=== PATIENT | female | born 1950 | race Caucasian/White ===

== ENCOUNTER 2021-03-20 09:59 | Inpatient (IN) ==
[~2021-03-20 09:59] MED LIST: 0.9 % SODIUM CHLORIDE 250 ML IV SCH
[2021-03-20 10:48] LABS: Basophils # (Auto) 0.08 K/mcL (0.00-0.20); Basophils % (Auto) 1.2 % (0.0-2.0); Eosinophils # (Auto) 0.18 K/mcL (0.00-0.70); Eosinophils % (Auto) 2.7 % (0.0-7.0); Hematocrit 28.9 % (36.0-48.0); Hemoglobin 9.4 g/dL (12.0-15.0); Lymphocytes # (Auto) 0.87 K/mcL (1.50-4.80); Lymphocytes % (Auto) 13.2 % (15.0-49.0); Mean Cell Volume 100.7 fL (80.0-100.0); Mean Corpuscular HGB Conc 32.5 g/dL (31.0-36.0); Monocytes # (Auto) 0.73 K/mcL (0.10-0.90); Monocytes % (Auto) 11.1 % (1.0-12.0); Neutrophils % (Auto) 71.8 % (38.0-78.0); Platelet Count 279 K/mcL (140-440); RBC 2.87 M/mcL (4.00-5.20); Red Cell Distribution Width 14.9 % (11.5-14.5); WBC 6.6 K/mcL (4.5-11.0)
[2021-03-20 11:08] LABS: Partial Thromboplastin Time 34.5 sec (20.0-37.0)
[2021-03-20 11:09] LABS: INR 0.9 (0.9-1.1); Prothrombin Time 12.8 sec (11.9-14.5)
[2021-03-20 11:20] LABS: ALT/SGPT 8 U/L (<40); AST/SGOT 14 U/L (<32); Albumin 3.4 gm/dL (3.2-5.2); Albumin/Globulin Ratio 0.8 (1.0-2.3); Alkaline Phosphatase 94 U/L (39-117); Bilirubin,Total 0.3 mg/dL (0.1-1.0); Blood Urea Nitrogen 16 mg/dL (8-23); Calcium 9.2 mg/dL (8.6-10.4); Carbon Dioxide 24 mmol/L (22-30); Chloride 96 mmol/L (96-108); Globulin 4.2 gm/dL (2.2-3.7); Glomerular Filtration Rate 41; Glucose 145 mg/dL (70-105)
[2021-03-20] MEDS ORDERED: NON FORMULARY MEDICATION 1 DOSE MISCELL (Methadone 10 mg tablet) PO PRN (12:14)
[2021-03-20] MEDS ORDERED: HYDROmorphone 0.5 MG/0.5 ML SYRINGE IV PRN (12:19)
--- NOTE | 2021-03-20 12:52 | XRay Report ---
HISTORY: Preop for colon surgery FINDINGS: Lungs are hyperinflated. There is an ill-defined diffuse infiltrates throughout the right lung. It Extends from above the hilum down to the diaphragm. The pulmonary vessels, best seen on the upper lobes are engorged.. No pleural effusion is present. The heart size is normal but has enlarged since 07/16/15. There are multiple surgical clips in the left axilla. Moderate arthritis is present in both shoulders. There is a scoliotic curvature with associated arthritis in the thoracic and lumbar spine.. IMPRESSION: Diffuse infiltrate in the right lung which could be due to pneumonia or asymmetric pulmonary edema Enlarging heart with pulmonary vascular congestion Interpreted and Authenticated by: Yaniv Saavedra 03/20/21
[2021-03-20] MEDS: METHADONE 5 MG TABLET PO PRN ×2 (13:25→23:07)
[2021-03-20] MEDS: 0.9 % SODIUM CHLORIDE 1,000 ML IV SCH ×2 (13:25→20:06)
[2021-03-20] MEDS ORDERED: MAGNESIUM CITRATE 300 ML ORAL.SOL ONE (13:46)
[2021-03-20] MEDS: METOCLOPRAMIDE 10 MG/2 ML VIAL IV SCH ×2 (14:18→19:07)
[2021-03-20] MEDS: MAGNESIUM CITRATE 300 ML ORAL.SOL PO SCH ×2 (14:21→18:06)
[2021-03-20] MEDS: PANTOPRAZOLE 40 MG VIAL IV SCH (16:55)
--- NOTE | 2021-03-20 17:33 | General Surgery Progress Note ---
SUBJECTIVE Subjective Patient information: Note initiated : 03/20/21 at 5:29 pm Service Date, if different from initiated Date: [] Patient: Angely Painter 70 y/o F admitted on 03/20/21 for Posterior Proctopexy and End Colostomy. Chief Complaint: [] Interval history: The patient was interviewed last evening and has decided that she does not want to have the colostomy. She asked the proctopexy be done primarily proceed with colostomy. She is again informed since she has no sphincter tone but she will have the equipment the perineal stoma without control with constant fecal incontinence. She states that she wishes to proceed with posterior proctopexy alone and not have the colostomy performed. She is quite sure this is what she wishes to have in spite of the high probability of fecal incontinence. She is therefore going to have the equipment of the Ripstein procedure and I will follow her closely after she recovers to determine if she wishes to diverting colostomy performed. Constitutional Vitals: Vital Signs Temp Pulse Resp BP Pulse Ox 97.8 F 20 L 20 99/56 91 03/20/21 16:00 03/20/21 16:00 03/20/21 16:00 03/20/21 16:00 03/20/21 16:00 Period Temp Pulse Resp BP Sys/Kasper Pulse Ox Last 24 Hr 97.8 F-98.7 F 20-87 18-20 99-125/56-68 91-95 Intake and Output 03/20/21 03/20/21 03/20/21 05:59 13:59 21:59 Output Total 1 Balance -1 Weight 120 lb Patient Weight 03/21/21 05:59 Weight 120 lb Intake & Output: Intake & Output 03/20/21 03/20/21 03/20/21 05:59 13:59 21:59 Output Total 1 Balance -1 Weight 120 lb Output: # of times incontinent of urine 1 Other: # Voids 1 A/P Time Spent With Patient Time: Total time spent is greater than 50% in coordination of care (as documented) at patient's floor/unit and/or counseling patient:
[2021-03-20] MEDS ORDERED: ONDANSETRON 4 MG/2 ML VIAL IV PRN (17:39)
[2021-03-20 18:44] LABS: Prealbumin 9.9 mg/dL (20.0-40.0)
[2021-03-21] MEDS: METOCLOPRAMIDE 10 MG/2 ML VIAL IV SCH ×5 (00:22→23:28)
[2021-03-21 01:40] LABS: ALT/SGPT 8 U/L (<40); AST/SGOT 14 U/L (<32); Albumin 3.2 gm/dL (3.2-5.2); Albumin/Globulin Ratio 0.9 (1.0-2.3); Alkaline Phosphatase 92 U/L (39-117); Bilirubin,Direct < 0.2 mg/dL (0-0.3); Bilirubin,Total 0.2 mg/dL (0.1-1.0); Blood Urea Nitrogen 17 mg/dL (8-23); Carbon Dioxide 21 mmol/L (22-30); Chloride 97 mmol/L (96-108); Globulin 3.4 gm/dL (2.2-3.7); Glomerular Filtration Rate 41; Glucose 82 mg/dL (70-105); Lactate Dehydrogenase 180 U/L (135-225); Phosphorous 4.9 mg/dL (2.5-4.5); Triglycerides 62 mg/dL (<150); Uric Acid 6.8 mg/dL (2.5-8.0)
[2021-03-21] MEDS: 0.9 % SODIUM CHLORIDE 1,000 ML IV SCH ×2 (02:30→10:19)
[2021-03-21 04:40] LABS: Appearance,Urine HAZY (Clear); Bilirubin,Urine Negative (Negative); Color,Urine YELLOW; Culture Indicated,Urine No; Glucose,Urine (UA) Negative (Negative); Ketones,Urine Negative (Negative); Leukocyte Esterase,Urine Negative /ug (Negative); Nitrate,Urine Negative (Negative); Protein,Urine Negative (Negative); Specific Gravity,Urine 1.012 (1.000-1.035); Urine Blood Negative (Negative); Urobilinogen,Urine Negative
[2021-03-21] MEDS ORDERED: metroNIDAZOLE 500 MG/100 ML BAG IV SCH (06:00)
[2021-03-21] MEDS ORDERED: LEVOFLOXACIN 750 MG/150 ML BAG IV SCH (06:00)
[2021-03-21 07:13] LABS: Basophils # (Auto) 0.09 K/mcL (0.00-0.20); Eosinophils # (Auto) 0.07 K/mcL (0.00-0.70); Eosinophils % (Auto) 0.8 % (0.0-7.0); Hematocrit 29.8 % (36.0-48.0); Hemoglobin 9.5 g/dL (12.0-15.0); Lymphocytes # (Auto) 0.84 K/mcL (1.50-4.80); Mean Cell Volume 103.5 fL (80.0-100.0); Mean Corpuscular HGB Conc 31.9 g/dL (31.0-36.0); Mean Platelet Volume 9.1 fL (7.4-10.4); Monocytes # (Auto) 1.04 K/mcL (0.10-0.90); Monocytes % (Auto) 11.1 % (1.0-12.0); Neutrophils % (Auto) 78.1 % (38.0-78.0); Platelet Count 310 K/mcL (140-440); RBC 2.88 M/mcL (4.00-5.20); Red Cell Distribution Width 15.1 % (11.5-14.5); WBC 9.3 K/mcL (4.5-11.0)
[2021-03-21] MEDS ORDERED: SCOPOLAMINE 1 PATCH PATCH TOPICAL PRN ×2 (07:30→09:34)
[2021-03-21] MEDS ORDERED: IPRATROPIUM/ALBUTEROL 3 ML AMPUL.NEB NEB PRN (07:30)
[2021-03-21 07:32] LABS: ALT/SGPT 13 U/L (<40); AST/SGOT 22 U/L (<32); Albumin/Globulin Ratio 0.7 (1.0-2.3); Alkaline Phosphatase 141 U/L (39-117); Bilirubin,Direct < 0.2 mg/dL (0-0.3); Bilirubin,Total 0.3 mg/dL (0.1-1.0); Blood Urea Nitrogen 20 mg/dL (8-23); Calcium 9.1 mg/dL (8.6-10.4); Carbon Dioxide 24 mmol/L (22-30); Chloride 102 mmol/L (96-108); Globulin 4.4 gm/dL (2.2-3.7); Glomerular Filtration Rate 41; Glucose 86 mg/dL (70-105); Lactate Dehydrogenase 206 U/L (135-225); Phosphorous 4.5 mg/dL (2.5-4.5); Triglycerides 71 mg/dL (<150); Uric Acid 7.2 mg/dL (2.5-8.0)
[2021-03-21] MEDS: PANTOPRAZOLE 40 MG VIAL IV SCH ×2 (08:59→17:27)
[2021-03-21] MEDS ORDERED: amLODIPine 10 MG TABLET PO SCH (09:00)
[2021-03-21] MEDS ORDERED: SERTRALINE 100 MG TABLET PO SCH (09:00)
[2021-03-21] MEDS ORDERED: cloNIDine HCL 0.1 MG TABLET PO SCH (09:00)
[2021-03-21] MEDS ORDERED: hydrALAZINE 20 MG/ML VIAL IV PRN ×2 (09:08→09:34)
[2021-03-21 09:09] LABS: Blood Urea Nitrogen 20 mg/dL (8-23); Calcium 8.9 mg/dL (8.6-10.4); Carbon Dioxide 24 mmol/L (22-30); Chloride 102 mmol/L (96-108); Glomerular Filtration Rate 41; Glucose 93 mg/dL (70-105)
--- NOTE | 2021-03-21 09:28 | Internal Medicine Consult Note ---
HPI Data of Consult Consult date: 03/21/21 Primary Care Provider: Valerie Milton Consult Narrative cc:: CC: Richy Austin MD. Reason for consult: hypoxia. HPI: Patient is a 70 years old woman claims to have no prior cardiac or pulmonary history such as CHF, CAD, asthma, COPD, documented history of chronic kidney disease stage III, originally admitted by Dr. Austin for planted proctopexy for rectal prolapse. During preop preparations, patient was found to be hypoxic with oxygen saturations as low as to the 50s percent on room air. At that point patient was alert and oriented x3, not lethargic, and claims to be totally asymptomatic including denying shortness of breath, cough, wheezing, or chest pain. Patient was placed on supplemental oxygen via oxygen mask, and her surgery was canceled. Medical consultations were requested for management of hypoxia. Patient is currently is also asymptomatic, alert and oriented x3, denied shortness of breath, cough, sputum productions, wheezings. Denies fever, chills, or diaphoresis. Patient denies dyspnea of the exertions. Patient denies leg swelling or unintentional weight gain. Patient's denies orthopnea and sleeps on one pillow at night. Patient had a history of cigarette smoking half a pack a day for 20 years but she quit 5 years ago. Constitutional Constitutional: Absent chills, excessive sweating, fatigue, fever(s) and weakness EENT Eyes: Absent blurry vision, change in vision, loss of vision and other visual disturbances Ears: Absent decreased hearing and tinnitus Nose, mouth and throat: Absent abnormal hearing, dry mouth, headache(s), nasal congestion and sore throat Cardiovascular Cardiovascular: Absent chest pain, chest pain at rest, edema, irregular heart rhythm and palpatations Respiratory Respiratory: Absent cough, dyspnea and wheezing Gastrointestinal Gastrointestinal: Absent abdominal pain, constipation, diarrhea, nausea and vomiting Musculoskeletal Musculoskeletal: Absent back pain, deformity, limited range of motion, muscle cramps, muscle weakness and numbness Integumentary Integumentary: Absent lesions, rash and wounds Neurological Neurological: Absent focal weakness, headache(s) and numbness Psychiatric Psychiatric: Absent anxiety, depression and hallucinations PFSH PFSH All Active Problems (Updated 03/21/21 @ 09:27 by Zeb Wakefield MD) CHF (congestive heart failure), NYHA class II (Acute) Atrial fibrillation (Acute) Hypoxia (Acute) Anal sphincter incompetence (Acute) Rectal prolapse (Acute) 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) Degenerative disc disease, lumbar (Chronic) Solitary kidney, acquired (Chronic) Benign hypertension with CKD (chronic kidney disease) stage III (Chronic) CKD (chronic kidney disease) stage 3, GFR 30-59 ml/min (Chronic) Right hip pain (Acute) Nausea with vomiting (Acute) Metastatic neoplasm (Chronic) Hypertension (Chronic) Chronic Kidney Disease (Chronic) Serum creatinine raised (Chronic) Chronic pain (Chronic) Renal cell carcinoma (Chronic) History of biopsy (Chronic 05/09/15) Chronic pancreatitis (Chronic) Fatigue (Chronic) Venous insufficiency (Chronic) Sleep apnea (Chronic) Hypertension, essential (Chronic) Depressive disorder (Chronic 06/07/14) Breast cancer (Chronic) Anemia (Chronic) Medical History (Updated 03/21/21 @ 09:27 by Zeb Wakefield MD) Anemia (09/03/2014) Dr. Mendez; Anemia, symptomatic with associated abdominal pain Benign hypertension with CKD (chronic kidney disease) stage III Breast cancer Sep 2013 Newly diagnosed. 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 Villegas suggested radiation therapy but patient declined Chronic Kidney Disease Chronic pain Chronic pain Chronic pancreatitis CKD (chronic kidney disease) stage 3, GFR 30-59 ml/min Degenerative disc disease, lumbar multilevel Depressive disorder (06/07/14) 06/07/2014 - PHQ-9 score of 21; improved to score of 3 on 100mg of sertraline Diarrhea (09/03/2013) Dr. Mendez Electrolyte and fluid disorder (09/03/2013) Dr. 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 Walters Pancreatitis 05/2014 (09/03/2013) Dr. Mendez; History of biliary pancreatitis, status post cholecystectomy 02/2014, per Dr. Jacome related to alcohol (07/04/2014) Dr. Eleno Curran; Pancreatitis Pyelonephritis 11/13/2014 - [facility] Robertson Renal cell carcinoma 05/24/2015 - Right kidney biopsy Right hip pain Serum creatinine raised unilateral right nephrectomy 07/2015 for RCC Sleep apnea Sep [address] Escamilla sleep study; CPAP machine Solitary kidney, acquired Urinary tract infection 11/10/2014 - LINDA Dickey-[facility] Use of opiates for therapeutic purposes UTI (urinary tract infection) Venous insufficiency 2010 lower extremities; intermittent swelling; wears support hose prn Surgical History H/O rectal sphincterotomy (10/12/14) Dr. Florencio Ryan - Pancreatic sphincterotomy History of biopsy (05/09/15) Dr. Ivy - Right Mass Renal Biopsy - See path report History of cholecystectomy 02/[address] Jacome; [facility] History of colonoscopy (07/09/14) Dr. Honorio Martinez; Colonic polyps, Uncomplicated internal hemorrhoids History of ERCP (11/16/14) [facility], Negative for H.Pylori History of left breast biopsy (09/07/13) per Dr. Jacome History of surgical removal of skin lesion Apr [address] 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 [employer] sexually active: Yes other: 2 children/3 gc well-balanced diet: daily or most days daily servings fruits/ve-4 eating out: rarely or never during the past year weight has: remained stable physical activity: none frequency: 1-2 times per week duration: 15-30 minutes/day alcohol intake frequency: former alcohol drinker substance use type: does not use nidhi/hindu: None seatbelt use: always working smoke detector in home: Yes MEDS/ALLERGIES Home Medications and Allergies Home Medications Medication Instructions Recorded Confirmed Type letrozole 2.5 mg tablet 2.5 mg PO QDAY tab 04/22/16 03/20/21 History compression socks, medium #2 each 06/18/16 03/20/21 Rx amlodipine 10 mg tablet 10 mg PO QDAY #90 tab 06/17/17 03/20/21 Rx promethazine 25 mg tablet 12.5 mg PO Q6H PRN #120 tab 10/14/17 03/20/21 Rx methadone 10 mg tablet 10 mg PO Q6H PRN #120 tab 02/03/18 03/20/21 Rx sertraline 100 mg tablet 100 mg PO QDAY #30 tab 02/03/18 03/20/21 Rx fenofibrate 160 mg tablet 160 mg PO QDAY tab 01/16/19 03/20/21 History clonidine HCl 0.1 mg PO QDAY 03/19/21 03/20/21 History Allergies Allergy/AdvReac Type Severity Reaction Status Date / Time cefepime Allergy Mild Rash Verified 03/19/21 10:22 EXAM Constitutional Vitals: Temp Pulse Resp BP Pulse Ox 37.2 C 72 18 144/59 90 03/21/21 06:58 03/21/21 06:58 03/21/21 06:58 03/21/21 06:58 03/21/21 06:58 General appearance: cooperative and no acute distress Head Head exam: Present atraumatic and normocephalic Eye Eye exam: Present EOMI and PERRL ENT ENT exam: Present mucous membranes moist, normal exam and normal external ear exam Additional comments: oxygen mask in place Neck Neck exam: Present normal inspection; Absent lymphadenopathy, tenderness and thyromegaly Respiratory Respiratory exam: Absent accessory muscle use, respiratory distress and wheezes Additional comments: Respiratory crackles in bilateral lung bases Cardiovascular Cardiovascular exam: Present irregular rhythm; Absent normal rate and rhythm and JVD GI/Abdominal GI/Abdominal exam: Present normal bowel sounds and soft; Absent organomegaly and tenderness Additional comments: Rectal prolapse in place Extremities Exam Extremities exam: Present full ROM, normal capillary refill and normal inspection; Absent tenderness Neurological Exam Neurological exam: Present alert, CN II-XII intact and oriented X3; Absent motor sensory deficit Psychiatric Psychiatric exam: Present normal affect and normal mood; Absent anxious and depressed Skin Skin exam: Present dry and intact DATA Data Completed and Pending Labs: Labs from last 24 hours 03/21/21 03/21/21 03/21/21 08:47 07:50 05:22 WBC RBC Hgb Hct MCV MCH MCHC RDW Plt Count MPV Neut % (Auto) Lymph % (Auto) Petroleum % (Auto) Eos % (Auto) Baso % (Auto) Lymph # (Auto) Petroleum # (Auto) Eos # (Auto) Baso # (Auto) Absolute Neutrophils PT INR APTT Sodium 136 136 Potassium 5.9 H* 5.7 H Chloride 102 102 Carbon Dioxide 24 24 Anion Gap 10.0 10.0 BUN 20 20 Creatinine 1.3 H 1.3 H GFR Calculation 41 41 Glucose 93 86 Uric Acid 7.2 Calcium 8.9 9.1 Phosphorus 4.5 Magnesium 3.1 H Total Bilirubin 0.3 Direct Bilirubin < 0.2 GGT 54 H AST 22 ALT 13 Alkaline Phosphatase 141 H Lactate Dehydrogenase 206 NT-Pro-B Natriuret Pep Pending Total Protein 7.4 Albumin 3.0 L Globulin 4.4 H Albumin/Globulin Ratio 0.7 L Prealbumin Triglycerides 71 Urine Color Urine Appearance Urine pH Ur Specific [place] Urine Protein Urine Glucose (UA) Urine Ketones Urine Occult Blood Urine Nitrate Urine Bilirubin Urine Urobilinogen Ur Leukocyte Esterase Ur Culture Indicated? 03/21/21 03/21/21 03/20/21 05:22 03:50 12:34 WBC 9.3 Pending RBC 2.88 L Pending Hgb 9.5 L Pending Hct 29.8 L Pending MCV 103.5 H Pending MCH 33.0 Pending MCHC 31.9 Pending RDW 15.1 H Pending Plt Count 310 Pending MPV 9.1 Pending Neut % (Auto) 78.1 H Pending Lymph % (Auto) 9.0 L Petroleum % (Auto) 11.1 Eos % (Auto) 0.8 Baso % (Auto) 1.0 Lymph # (Auto) 0.84 L Petroleum # (Auto) 1.04 H Eos # (Auto) 0.07 Baso # (Auto) 0.09 Absolute Neutrophils 7.29 PT INR APTT Sodium Potassium Chloride Carbon Dioxide Anion Gap BUN Creatinine GFR Calculation Glucose Uric Acid Calcium Phosphorus Magnesium Total Bilirubin Direct Bilirubin GGT AST ALT Alkaline Phosphatase Lactate Dehydrogenase NT-Pro-B Natriuret Pep Total Protein Albumin Globulin Albumin/Globulin Ratio Prealbumin Triglycerides Urine Color Yellow Urine Appearance Hazy A Urine pH 5.0 Ur Specific [place] 1.012 Urine Protein Negative Urine Glucose (UA) Negative Urine Ketones Negative Urine Occult Blood Negative Urine Nitrate Negative Urine Bilirubin Negative Urine Urobilinogen Negative Ur Leukocyte Esterase Negative Ur Culture Indicated? No 03/20/21 03/20/21 03/20/21 12:34 10:29 05:00 WBC RBC Hgb Hct MCV MCH MCHC RDW Plt Count MPV Neut % (Auto) Lymph % (Auto) Petroleum % (Auto) Eos % (Auto) Baso % (Auto) Lymph # (Auto) Petroleum # (Auto) Eos # (Auto) Baso # (Auto) Absolute Neutrophils PT INR APTT Sodium 134 132 L Potassium 4.8 3.9 Chloride 97 96 Carbon Dioxide 21 L 24 Anion Gap 16.0 12.0 BUN 17 16 Creatinine 1.3 H 1.3 H GFR Calculation 41 41 Glucose 82 145 H Uric Acid 6.8 Calcium 9.0 9.2 Phosphorus 4.9 H Magnesium 1.8 Total Bilirubin 0.2 0.3 Direct Bilirubin < 0.2 GGT 22 AST 14 14 ALT 8 8 Alkaline Phosphatase 92 94 Lactate Dehydrogenase 180 NT-Pro-B Natriuret Pep Total Protein 6.6 7.6 Albumin 3.2 3.4 Globulin 3.4 4.2 H Albumin/Globulin Ratio 0.9 L 0.8 L Prealbumin 9.9 L Triglycerides 62 Urine Color Pending Urine Appearance Pending Urine pH Pending Ur Specific [place] Pending Urine Protein Pending Urine Glucose (UA) Pending Urine Ketones Pending Urine Occult Blood Pending Urine Nitrate Pending Urine Bilirubin Pending Urine Urobilinogen Pending Ur Leukocyte Esterase Pending Ur Culture Indicated? 03/20/21 03/20/21 05:00 05:00 WBC 6.6 RBC 2.87 L Hgb 9.4 L Hct 28.9 L MCV 100.7 H MCH 32.8 MCHC 32.5 RDW 14.9 H Plt Count 279 MPV 9.0 Neut % (Auto) 71.8 Lymph % (Auto) 13.2 L Petroleum % (Auto) 11.1 Eos % (Auto) 2.7 Baso % (Auto) 1.2 Lymph # (Auto) 0.87 L Petroleum # (Auto) 0.73 Eos # (Auto) 0.18 Baso # (Auto) 0.08 Absolute Neutrophils 4.71 PT 12.8 INR 0.9 APTT 34.5 Sodium Potassium Chloride Carbon Dioxide Anion Gap BUN Creatinine GFR Calculation Glucose Uric Acid Calcium Phosphorus Magnesium Total Bilirubin Direct Bilirubin GGT AST ALT Alkaline Phosphatase Lactate Dehydrogenase NT-Pro-B Natriuret Pep Total Protein Albumin Globulin Albumin/Globulin Ratio Prealbumin Triglycerides Urine Color Urine Appearance Urine pH Ur Specific [place] Urine Protein Urine Glucose (UA) Urine Ketones Urine Occult Blood Urine Nitrate Urine Bilirubin Urine Urobilinogen Ur Leukocyte Esterase Ur Culture Indicated? A/P Assessment and plan (1) Atrial fibrillation: Status: Acute (2) Hypoxia: Status: Acute (3) CHF (congestive heart failure), NYHA class II: Status: Acute (4) Rectal prolapse: Status: Acute (5) CKD (chronic kidney disease) stage 3, GFR 30-59 ml/min: Status: Chronic (6) Hypertension: Status: Chronic Qualifiers: Hypertension type: essential hypertension Qualified Code(s): I10 - Essential (primary) hypertension (7) Depressive disorder: Status: Chronic Comment: 06/07/2014 - PHQ-9 score of 21; improved to score of 3 on 100mg of sertraline (8) Anemia: Status: Chronic Comment: (09/03/2014) Dr. Mendez; Anemia, symptomatic with associated abdominal pain Narrative A/P Narrative: Assessment and Plans: 1. Asymptomatic hypoxia, presumed to be secondary to CHF: Inpatient med surg 2D echocardiogram Daily weigh Strict intake and output 2L/day fluid restriction Lasix 40mg IV BID, switch to PO maybe tomorrow Lisinopril 5mg PO daily Add beta nelson at time of discharge Oxygen therapy titrate to achieve oxygen saturation >=92% 2. Atrial fibrillation: [id number] score of 4 (if CHF confirmed by echocardiogram) or 3 Xarelto Currently rate-controlled, add beta nelson at time of discharge 3. Rectal prolapse: Dr. Austin does not plan to do any surgery at this point. Continue medical management 4. CKD stage 3: CMP daily to trend kidney functions Saline lock with Lasix Avoid nephrotoxic agents 5. Macrocytic anemia: cbc to trend H/H; transfuse pRBC if hemoglobin <7.0, active bleeding, or symptomatic 6. Essential HTN: Currently normotensive Lisinopril Lasix IV Add beta nelson at time of discharge 7. Depressive disorder: Sertraline Time Spent With Patient Time: Total time spent is greater than 50% in coordination of care (as documented) at patient's floor/unit and/or counseling patient: Total time spent with greater than 50% in coordination of care (as documented) at patient's floor/unit and/or counseling patient:: 25 - 35 minutes
[2021-03-21] MEDS ORDERED: HYDROmorphone 0.5 MG/0.5 ML SYRINGE IV PRN (09:34)
[2021-03-21] MEDS ORDERED: ONDANSETRON 4 MG/2 ML VIAL IV PRN (09:34)
--- NOTE | 2021-03-21 09:35 | General Surgery Progress Note ---
SUBJECTIVE Subjective Patient information: Note initiated : 03/21/21 at 9:27 am Service Date, if different from initiated Date: [] Patient: Angely Painter 70 y/o F admitted on 03/20/21 for Posterior Proctopexy and End Colostomy. Chief Complaint: [] Principal diagnosis: Rectal prolapse; hypoxemia; pulmonary congestion Interval history: The patient was noted to have severe hypoxemia when she arrived in the holding area prior to surgery. The saturation monitors suggested 50 to 60% oxygen saturation on room air. This increased to 92% with oxygen supplementation. Blood gases were drawn but the oxygen level was said to be less than 30 which is out of line with her clinical state this was probably a venous sample. Chest x-ray shows pulmonary congestion compatible with cardiac failure his pain is controlled. He also has a questionable infiltrate at the right base. Constitutional Vitals: Vital Signs Temp Pulse Resp BP Pulse Ox 98.9 F 72 18 144/59 90 03/21/21 06:58 03/21/21 06:58 03/21/21 06:58 03/21/21 06:58 03/21/21 06:58 Period Temp Pulse Resp BP Sys/Kasper Pulse Ox Last 24 Hr 97.2 F-98.9 F 20-87 16-20 99-144/56-73 90-95 Intake and Output 03/20/21 03/21/21 03/21/21 21:59 05:59 13:59 Intake Total 1300 1000 100 Output Total 1 750 Balance 1299 250 100 Weight 125 lb 9 oz Intake & Output: Intake & Output 03/20/21 03/21/21 03/21/21 21:59 05:59 13:59 Intake Total 1300 1000 100 Output Total 1 750 Balance 1299 250 100 Weight 125 lb 9 oz Intake: IV 1000 1000 100 Sodium Chloride 0.9% 1,000 ml @ 1000 1000 150 mls/hr IV .[id number] [facility] Rx#: [id number] Oral 300 Output: # of times incontinent of urine 1 Stool 750 Other: Stool Size Small Small Moderate Stool Color Brown Brown Brown Stool Consistency Formed Liquid Soft # Voids 1 # Bowel Movements 1 # of times incontinent of 1 Bowels Head Head exam: Present atraumatic, normal inspection and normocephalic Eye Eye exam: Present EOMI Pupils: Present normal accommodation and PERRL ENT ENT exam: Present mucous membranes moist, normal exam and normal oropharynx Neck Neck exam: Present full ROM; Absent lymphadenopathy and tenderness Respiratory Respiratory exam: Present normal respiratory exam and CTAB; Absent rales, respiratory distress, rhonchi, stridor and wheezes Cardiovascular Cardiovascular exam: Present bradycardia, irregular rhythm, +S1 and +S2; Absent JVD Additional comments: Heart rate is irregularly irregular with base rate of 60. GI/Abdominal GI/Abdominal exam: Present normal bowel sounds, soft and distended; Absent mass and organomegaly Extremities Exam Extremities exam: Present full ROM, normal capillary refill, normal inspection and neurovascular intact; Absent pedal edema and tenderness Back Exam Back exam: Present full ROM Neurological Exam Neurological exam: Present alert, oriented X3 and reflexes normal Psychiatric Psychiatric exam: Present normal affect and normal mood; Absent anxious and depressed Skin Skin exam: Present pallor; Absent cyanosis, erythema and rash A/P Narrative A/P Narrative: Patient has received Lasix 40 mg IV Echocardiogram was ordered proBNP follow-up chest x-ray is ordered Consultation with hospitalist as soon as possible Time Spent With Patient Time: Total time spent is greater than 50% in coordination of care (as documented) at patient's floor/unit and/or counseling patient:
[2021-03-21] MEDS ORDERED: CALCIUM GLUCONATE 4.65 MEQ/10 ML VIAL IV ONE (10:14)
[2021-03-21] MEDS ORDERED: SODIUM POLYSTYRENE SULFONATE 15 GM/60 ML SUSPENSION PO ONE (10:14)
[2021-03-21] MEDS ORDERED: ALBUTEROL SULFATE 200 PUFF INHALER INH ONE (10:14)
[2021-03-21] MEDS ORDERED: DEXTROSE 50% 50 ML SYRINGE IV ONE (10:14)
[2021-03-21] MEDS ORDERED: INSULIN REGULAR, HUMAN 1 UNIT/0.01 ML UNIT IV ONE (10:14)
--- NOTE | 2021-03-21 10:26 | General Surgery Progress Note ---
Surgical - Auxillary Note - Subjective Patient Information: Note initiated : 03/21/21 at 9:17 am Service Date, if different from initiated Date: [] Patient: Angely Painter 70 y/o F admitted on 03/20/21 for Posterior Proctopexy and End Colostomy. Chief Complaint: [Hypoxemia preop-surgery cancelled pt arrived decrease LOC, dusky without notable resp distress. very slow and poor response to mask O2. RA ABGs taken to confirm, critical low PO2. Overnight narcotics administered, perhaps contributing factor. more likely underlying severe pulmonary disease with concomitant cardiac issues. pt will need comprehensive evaluation to assess periop risk, would recommend higher level of care. labs, ekg and cxr and history all reviewed, abgs ordered and recheck bmp. Dr Austin at bedside and aware, agrees with cancel and further eval and possible transfer. stated overnight hypoxia issues occurred but not reported to Dr Austin... DIETER]
[2021-03-21] MEDS ORDERED: DEXTROSE 50% 50 ML VIAL IV ONE (10:30)
[2021-03-21] MEDS: FUROSEMIDE 40 MG/4 ML VIAL IV SCH ×2 (10:35→21:23)
--- NOTE | 2021-03-21 12:27 | EKG ---
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 Measurements Intervals [place] Rate: 56 P: GA: QRS: -6 QRSD: 84 T: -7 QT: 432 QTc: 417 Interpretive Statements ATRIAL FIBRILLATION NONSPECIFIC T ABNORMALITIES, INFERIOR LEADS NO PRIOR TRACING FOR COMPARISON ABNORMAL ECG Electronically Signed On 03-21-2021 12:27:07 PDT by Lamberto Orr M.D. /store/[email or web address]/[id number]
--- NOTE | 2021-03-21 12:56 | EKG ---
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 Measurements Intervals [place] Rate: 50 P: [place]: QRS: 6 QRSD: 138 T: -6 QT: 428 QTc: 391 Interpretive Statements ACCELERATED JUNCTIONAL ESCAPE RHYTHM NONSPECIFIC INTRAVENTRICULAR CONDUCTION DELAY BORDERLINE R WAVE PROGRESSION, ANTERIOR LEADS Since previous ECG of 03-20-2021, INCREASED QRSd ABNORMAL ECG Electronically Signed On 03-21-2021 12:56:13 PDT by Lamberto Orr M.D. /[facility]//[id number]
[2021-03-21] MEDS ORDERED: MAGNESIUM CITRATE 300 ML ORAL.SOL PO SCH (13:00)
[2021-03-21] MEDS: METHADONE 5 MG TABLET PO PRN ×2 (13:42→19:46)
[2021-03-21 17:14] LABS: Blood Urea Nitrogen 22 mg/dL (8-23); Calcium 9.3 mg/dL (8.6-10.4); Carbon Dioxide 26 mmol/L (22-30); Chloride 99 mmol/L (96-108); Glomerular Filtration Rate 34; Glucose 146 mg/dL (70-105)
[2021-03-21] MEDS: RIVAROXABAN 20 MG TABLET PO SCH (17:27)
[2021-03-22] MEDS: METOCLOPRAMIDE 10 MG/2 ML VIAL IV SCH ×4 (05:40→23:43)
[2021-03-22 06:57] LABS: Basophils # (Auto) 0.06 K/mcL (0.00-0.20); Basophils % (Auto) 0.8 % (0.0-2.0); Eosinophils # (Auto) 0.16 K/mcL (0.00-0.70); Eosinophils % (Auto) 2.1 % (0.0-7.0); Hematocrit 26.5 % (36.0-48.0); Hemoglobin 8.8 g/dL (12.0-15.0); Lymphocytes # (Auto) 0.63 K/mcL (1.50-4.80); Lymphocytes % (Auto) 8.1 % (15.0-49.0); Mean Cell Volume 98.5 fL (80.0-100.0); Mean Corpuscular HGB Conc 33.2 g/dL (31.0-36.0); Mean Platelet Volume 9.3 fL (7.4-10.4); Monocytes # (Auto) 0.96 K/mcL (0.10-0.90); Monocytes % (Auto) 12.4 % (1.0-12.0); Neutrophils % (Auto) 76.6 % (38.0-78.0); Platelet Count 290 K/mcL (140-440); RBC 2.69 M/mcL (4.00-5.20); Red Cell Distribution Width 14.6 % (11.5-14.5); WBC 7.8 K/mcL (4.5-11.0)
[2021-03-22] MEDS: PANTOPRAZOLE 40 MG VIAL IV SCH ×2 (07:22→16:05)
[2021-03-22 07:30] LABS: ALT/SGPT 11 U/L (<40); AST/SGOT 16 U/L (<32); Albumin 3.2 gm/dL (3.2-5.2); Albumin/Globulin Ratio 0.8 (1.0-2.3); Alkaline Phosphatase 122 U/L (39-117); Bilirubin,Direct < 0.2 mg/dL (0-0.3); Bilirubin,Total 0.4 mg/dL (0.1-1.0); Blood Urea Nitrogen 20 mg/dL (8-23); Calcium 9.4 mg/dL (8.6-10.4); Carbon Dioxide 33 mmol/L (22-30); Chloride 92 mmol/L (96-108); Globulin 3.8 gm/dL (2.2-3.7); Glomerular Filtration Rate 37; Glucose 83 mg/dL (70-105); Lactate Dehydrogenase 154 U/L (135-225); Phosphorous 3.5 mg/dL (2.5-4.5); Triglycerides 47 mg/dL (<150); Uric Acid 8.3 mg/dL (2.5-8.0)
[2021-03-22] MEDS: cloNIDine HCL 0.1 MG TABLET PO SCH (08:49)
[2021-03-22] MEDS: FUROSEMIDE 40 MG/4 ML VIAL IV SCH (08:49)
[2021-03-22] MEDS: SERTRALINE 100 MG TABLET PO SCH (08:50)
[2021-03-22] MEDS: amLODIPine 10 MG TABLET PO SCH (08:50)
[2021-03-22] MEDS ORDERED: LISINOPRIL 5 MG TABLET PO SCH (09:00)
--- NOTE | 2021-03-22 10:25 | XRay Report ---
HISTORY: Follow-up pulmonary congestion FINDINGS: Severe diffuse alveolar infiltrates are present throughout both lungs. There are several curly B lines. These have become worse since the prior exam done on 03/20/21. There may be a small subpulmonic pleural effusion on the right. Heart is mildly enlarged and has increased in size. No mass is identified. There is no apparent adenopathy. IMPRESSION: Worsening pulmonary edema. Superimposed pneumonia cannot be excluded. Interpreted and Authenticated by: Yaniv Saavedra 03/22/21
--- NOTE | 2021-03-22 10:57 | General Surgery Progress Note ---
SUBJECTIVE Subjective Patient information: Note initiated : 03/22/21 at 10:46 am Service Date, if different from initiated Date: [] Patient: Angely Painter 70 y/o F admitted on 03/20/21 for Posterior Proctopexy and End Colostomy. Chief Complaint: [] Principal diagnosis: Rectal prolapse; hypoxemia; pulmonary congestion Interval history: Patient states that she feels well and desires to go home. She denies any shortness of breath. She has been on oxygen at 3 L/min with sats above 90% consistently. She denies chest pain. Her proBNP yesterday was 6515. Chest x-ray this morning is clinically worse however her physical exam is actually better and she does not have any wheezes rales or rhonchi. She does hyperventilate bilaterally. Constitutional Vitals: Vital Signs Temp Pulse Resp BP Pulse Ox 97.7 F 69 14 160/70 95 03/22/21 08:00 03/22/21 08:00 03/22/21 08:00 03/22/21 08:00 03/22/21 06:03 Period Temp Pulse Resp BP Sys/Kasper Pulse Ox Last 24 Hr 97.6 F-99.1 F 49-76 14-18 119-160/64-73 90-95 Intake and Output 03/21/21 03/22/21 03/22/21 21:59 05:59 13:59 Intake Total 480 640 Output Total 3000 800 Balance -2520 -160 Weight 124 lb 1.6 oz Intake & Output: Intake & Output 03/21/21 03/22/21 03/22/21 21:59 05:59 13:59 Intake Total 480 640 Output Total 3000 800 Balance -2520 -160 Weight 124 lb 1.6 oz Intake: Oral 480 240 GI Tube Flush 400 Output: Urine Catheter Amount 3000 800 Other: Meal Breakfast Percent of Meal Consumed 75% Feeding Ability Independent Urine Appearance Clear Clear Uretheral (Goldstein) Clear Urine Color Bright Yellow Pale Uretheral (Goldstein) Bright Yellow Urine Odor Normal Normal Stool Size Small Stool Color Brown Stool Consistency Loose # Bowel Movements 1 # of times incontinent of 1 Bowels ENT ENT exam: Present mucous membranes moist, normal exam and normal oropharynx Neck Neck exam: Present full ROM; Absent lymphadenopathy and tenderness Respiratory Respiratory exam: Present normal respiratory exam and CTAB; Absent rales, respiratory distress, rhonchi, stridor and wheezes Cardiovascular Cardiovascular exam: Present bradycardia, irregular rhythm, +S1 and +S2; Absent JVD Additional comments: Heart rate is irregularly irregular with base rate of 60. GI/Abdominal GI/Abdominal exam: Present normal bowel sounds, soft and distended; Absent mass and organomegaly Rectal Rectal exam: Present decreased rectal tone Additional comments: Major rectal prolapse which is easily reducible Extremities Exam Extremities exam: Present full ROM, normal capillary refill, normal inspection and neurovascular intact; Absent pedal edema and tenderness Back Exam Back exam: Present full ROM Neurological Exam Neurological exam: Present alert, oriented X3 and reflexes normal Psychiatric Psychiatric exam: Present normal affect and normal mood; Absent anxious and depressed Skin Skin exam: Present pallor; Absent cyanosis, erythema and rash A/P Assessment and plan (1) CHF (congestive heart failure), NYHA class II: Status: Acute (2) Atrial fibrillation: Status: Acute (3) Rectal prolapse: Status: Acute (4) Hypertension: Status: Chronic Qualifiers: Hypertension type: essential hypertension Qualified Code(s): I10 - Essential (primary) hypertension (5) Sleep apnea: Status: Chronic Comment: Sep [address] Escamilla sleep study; CPAP machine Qualifiers: Sleep apnea type: obstructive Qualified Code(s): G47.33 - Obstructive sleep apnea (adult) (pediatric) Narrative A/P Narrative: Recheck BMP is normal Continue diuretic therapy Time Spent With Patient Time: Total time spent is greater than 50% in coordination of care (as documented) at patient's floor/unit and/or counseling patient:
--- NOTE | 2021-03-22 11:44 | Internal Med Progress Note ---
SUBJECTIVE Subjective Patient information: Note initiated : 03/22/21 at 11:44 am Service Date, if different from initiated Date: [] Patient: Angely Painter 70 y/o F admitted on 03/20/21 for Posterior Proctopexy and End Colostomy. Chief Complaint: [hypoxia] 03/22/21: Been on between 2-3.5L/min oxygen overnight. Afebrile. Otherwise there was no other major overnight events. Subjective not obtained due to clinical situations. Principal diagnosis: Rectal prolapse; hypoxemia; pulmonary congestion Constitutional Vitals: Vital Signs Temp Pulse Resp BP Pulse Ox 36.5 C 69 14 160/70 95 03/22/21 08:00 03/22/21 08:00 03/22/21 08:00 03/22/21 08:00 03/22/21 06:03 Period Temp Pulse Resp BP Sys/Kasper Pulse Ox Last 24 Hr 36.4 C-37.3 C 49-76 14-18 119-160/64-73 90-95 Intake and Output 03/21/21 03/22/21 03/22/21 21:59 05:59 13:59 Intake Total 480 640 Output Total 3000 800 Balance -2520 -160 Weight 56.291 kg Intake & Output: Intake & Output 03/21/21 03/22/21 03/22/21 21:59 05:59 13:59 Intake Total 480 640 Output Total 3000 800 Balance -2520 -160 Weight 56.291 kg Intake: Oral 480 240 GI Tube Flush 400 Output: Urine Catheter Amount 3000 800 Other: Meal Breakfast Percent of Meal Consumed 75% Feeding Ability Independent Urine Appearance Clear Clear Uretheral (Goldstein) Clear Urine Color Bright Yellow Pale Uretheral (Goldstein) Bright Yellow Urine Odor Normal Normal Stool Size Small Stool Color Brown Stool Consistency Loose # Bowel Movements 1 # of times incontinent of 1 Bowels General appearance: cooperative and no acute distress Head Head exam: Present atraumatic and normocephalic Eye Eye exam: Present EOMI and PERRL ENT ENT exam: Present mucous membranes moist, normal exam and normal external ear exam Additional comments: Nasal cannula in place Neck Neck exam: Present normal inspection; Absent lymphadenopathy, tenderness and thyromegaly Respiratory Respiratory exam: Present rhonchi and wheezes; Absent accessory muscle use and respiratory distress Cardiovascular Cardiovascular exam: Present irregular rhythm; Absent JVD GI/Abdominal GI/Abdominal exam: Present normal bowel sounds and soft; Absent organomegaly and tenderness Extremities Exam Extremities exam: Present full ROM, normal capillary refill and normal inspection; Absent tenderness Neurological Exam Neurological exam: Present CN II-XII intact; Absent alert, motor sensory deficit and oriented X3 Additional comments: Lethargic Psychiatric Psychiatric exam: Present normal affect and normal mood; Absent anxious and depressed Skin Skin exam: Present dry and intact OBJ DATA Labs CBC & Chem 7: 03/22/21 05:30 03/22/21 05:30 Labs: Abnormal Lab Results 03/22/21 03/22/21 03/21/21 05:30 05:30 15:42 RBC 2.69 L Hgb 8.8 L Hct 26.5 L MCV RDW 14.6 H Neut % (Auto) Lymph % (Auto) 8.1 L [place] % (Auto) 12.4 H Lymph # (Auto) 0.63 L [place] # (Auto) 0.96 H VBG Lactic Acid Sodium Potassium Chloride 92 L Carbon Dioxide 33 H Creatinine 1.4 H 1.5 H Glucose 146 H Uric Acid 8.3 H Phosphorus Magnesium GGT 45 H Alkaline Phosphatase 122 H NT-Pro-B Natriuret Pep Albumin Globulin 3.8 H Albumin/Globulin Ratio 0.8 L Prealbumin Urine Appearance 03/21/21 03/21/21 03/21/21 15:41 08:47 07:50 RBC Hgb Hct MCV RDW Neut % (Auto) Lymph % (Auto) [place] % (Auto) Lymph # (Auto) [place] # (Auto) VBG Lactic Acid < 0.2 L Sodium Potassium 5.9 H* Chloride Carbon Dioxide Creatinine 1.3 H Glucose Uric Acid Phosphorus Magnesium GGT Alkaline Phosphatase NT-Pro-B Natriuret Pep 6515.0 H Albumin Globulin Albumin/Globulin Ratio Prealbumin Urine Appearance 03/21/21 03/21/21 03/21/21 05:22 05:22 03:50 RBC 2.88 L Hgb 9.5 L Hct 29.8 L MCV 103.5 H RDW 15.1 H Neut % (Auto) 78.1 H Lymph % (Auto) 9.0 L [place] % (Auto) Lymph # (Auto) 0.84 L [place] # (Auto) 1.04 H VBG Lactic Acid Sodium Potassium 5.7 H Chloride Carbon Dioxide Creatinine 1.3 H Glucose Uric Acid Phosphorus Magnesium 3.1 H GGT 54 H Alkaline Phosphatase 141 H NT-Pro-B Natriuret Pep Albumin 3.0 L Globulin 4.4 H Albumin/Globulin Ratio 0.7 L Prealbumin Urine Appearance Hazy A 03/20/21 03/20/21 03/20/21 12:34 05:00 05:00 RBC 2.87 L Hgb 9.4 L Hct 28.9 L MCV 100.7 H RDW 14.9 H Neut % (Auto) Lymph % (Auto) 13.2 L [place] % (Auto) Lymph # (Auto) 0.87 L [place] # (Auto) VBG Lactic Acid Sodium 132 L Potassium Chloride Carbon Dioxide 21 L Creatinine 1.3 H 1.3 H Glucose 145 H Uric Acid Phosphorus 4.9 H Magnesium GGT Alkaline Phosphatase NT-Pro-B Natriuret Pep Albumin Globulin 4.2 H Albumin/Globulin Ratio 0.9 L 0.8 L Prealbumin 9.9 L Urine Appearance Meds: Medications Amlodipine Besylate (Amlodipine 10 Mg Tablet) 10 mg PO QDAY [facility] Last Admin: 03/22/21 08:50 Dose: 10 mg Documented by: Clonidine HCl (Clonidine Hcl 0.1 Mg Tablet) 0.1 mg PO QDAY [facility] Last Admin: 03/22/21 08:49 Dose: 0.1 mg Documented by: Furosemide (Furosemide 40 Mg/4 Ml Vial) 40 mg IV Q12 [facility] Last Admin: 03/22/21 08:49 Dose: 40 mg Documented by: Hydralazine HCl (Hydralazine 20 Mg/Ml Vial) 10 mg IV Q4-6HP PRN PRN Reason: Hypertension Hydromorphone HCl (Hydromorphone 0.5 Mg/0.5 Ml Syringe) 0.5 mg IV Q2HP PRN; Protocol PRN Reason: Per Pain Protocol Methadone HCl (Methadone 5 Mg Tablet) 10 mg PO Q6HP PRN PRN Reason: Per Pain Protocol Last Admin: 03/21/21 19:46 Dose: 10 mg Documented by: Metoclopramide HCl (Metoclopramide 10 Mg/2 Ml Vial) 10 mg IV Q6 [facility] Last Admin: 03/22/21 05:40 Dose: 10 mg Documented by: Ondansetron HCl (Ondansetron 4 Mg/2 Ml Vial) 4 mg IV Q4HP PRN PRN Reason: Nausea And Vomiting Pantoprazole Sodium (Pantoprazole 40 Mg Vial) 40 mg IV BIDAC [facility] Last Admin: 03/22/21 07:22 Dose: 40 mg Documented by: Rivaroxaban (Rivaroxaban 20 Mg Tablet) 20 mg PO QPMCC [facility] Last Admin: 03/21/21 17:27 Dose: 20 mg Documented by: Sertraline HCl (Sertraline 100 Mg Tablet) 100 mg PO QDAY [facility] Last Admin: 03/22/21 08:50 Dose: 100 mg Documented by: A/P Assessment and plan (1) CHF (congestive heart failure), NYHA class II: Status: Acute (2) Atrial fibrillation: Status: Acute (3) Rectal prolapse: Status: Acute (4) Benign hypertension with CKD (chronic kidney disease) stage III: Status: Chronic (5) Sleep apnea: Status: Chronic Comment: Sep [address] Escamilla sleep study; CPAP machine Qualifiers: Sleep apnea type: obstructive Qualified Code(s): G47.33 - Obstructive sleep apnea (adult) (pediatric) (6) Anemia: Status: Chronic Comment: (09/03/2014) Dr. Mendez; Anemia, symptomatic with associated abdominal pain Narrative A/P Narrative: Assessment and Plans: 1. Asymptomatic hypoxia, presumed to be secondary to CHF: Inpatient med surg 2D echocardiogram Daily weigh Strict intake and output 2L/day fluid restriction Lasix 40mg PO BID Hold Lisinopril given hyperkalemia as of 03/21/21 Add beta nelson at time of discharge Oxygen therapy titrate to achieve oxygen saturation >=92% 2. Atrial fibrillation: [id number] score of 4 (if CHF confirmed by echocardiogram) or 3 Xarelto Currently rate-controlled, add beta nelson at time of discharge 3. Rectal prolapse: Dr. Austin does not plan to do any surgery at this point. Continue medical management 4. CKD stage 3: CMP daily to trend kidney functions Saline lock with Lasix Avoid nephrotoxic agents 5. Macrocytic anemia: cbc to trend H/H; transfuse pRBC if hemoglobin <7.0, active bleeding, or symptomatic 6. Essential HTN: Currently hypertensive Hold Lisinopril given hyperkalemia as of 03/21/21 Lasix 40mg PO BID Amlodipine Hydralazine 10mg IV q4-6hr PRN SBP>=180 and/or DBP>=110mmHg Add beta nelson at time of discharge 7. Depressive disorder: Sertraline 8. KIERRA on CPAP: Continue CPAP at night or while sleeping 9. Hyperkalemia: Resolved after Lasix, Albuterol, Calcium gluconate, Kayexalate, and Insulin given. Repeat serum potassium on 03/22/21 3.8 Hold Lisinopril for the time being Thank you for the consultation Time Spent With Patient Time: Total time spent is greater than 50% in coordination of care (as documented) at patient's floor/unit and/or counseling patient: Total time spent with greater than 50% in coordination of care (as documented) at patient's floor/unit and/or counseling patient:: 15 - 24 minutes QUALITY VTE Deep Vein Thrombosis/Pulmonary Embolism Present on Admission: No
[2021-03-22] MEDS: FUROSEMIDE 40 MG TABLET PO SCH (16:05)
[2021-03-22] MEDS: METHADONE 5 MG TABLET PO PRN ×2 (16:13→23:43)
[2021-03-22] MEDS: RIVAROXABAN 20 MG TABLET PO SCH (17:28)
[2021-03-23] MEDS: METOCLOPRAMIDE 10 MG/2 ML VIAL IV SCH (05:44)
[2021-03-23] MEDS: METHADONE 5 MG TABLET PO PRN ×2 (07:43→14:57)
[2021-03-23] MEDS: SERTRALINE 100 MG TABLET PO SCH (07:43)
[2021-03-23] MEDS: amLODIPine 10 MG TABLET PO SCH (07:43)
[2021-03-23] MEDS: FUROSEMIDE 40 MG TABLET PO SCH ×2 (07:43→14:57)
[2021-03-23] MEDS: cloNIDine HCL 0.1 MG TABLET PO SCH (07:44)
[2021-03-23] MEDS: PANTOPRAZOLE 40 MG VIAL IV SCH (07:44)
[2021-03-23 07:59] LABS: ALT/SGPT 9 U/L (<40); AST/SGOT 13 U/L (<32); Albumin 2.6 gm/dL (3.2-5.2); Albumin/Globulin Ratio 0.7 (1.0-2.3); Alkaline Phosphatase 99 U/L (39-117); Bilirubin,Direct < 0.2 mg/dL (0-0.3); Bilirubin,Total 0.3 mg/dL (0.1-1.0); Blood Urea Nitrogen 23 mg/dL (8-23); Calcium 8.5 mg/dL (8.6-10.4); Carbon Dioxide 39 mmol/L (22-30); Chloride 90 mmol/L (96-108); Globulin 3.7 gm/dL (2.2-3.7); Glomerular Filtration Rate 45; Glucose 86 mg/dL (70-105); Lactate Dehydrogenase 152 U/L (135-225); Phosphorous 2.9 mg/dL (2.5-4.5); Triglycerides 66 mg/dL (<150); Uric Acid 8.5 mg/dL (2.5-8.0)
--- NOTE | 2021-03-23 11:11 | Internal Med Progress Note ---
SUBJECTIVE Subjective Patient information: Note initiated : 03/23/21 at 11:09 am Service Date, if different from initiated Date: [] Patient: Angely Painter 70 y/o F admitted on 03/20/21 for Posterior Proctopexy and End Colostomy. Chief Complaint: [CHF exacerbation] 03/22/21: Been on between 2-3.5L/min oxygen overnight. Afebrile. Otherwise there was no other major overnight events. Subjective not obtained due to clinical situations. 03/23/21: Been on 2L/min oxygen this morning and on CPAP overnight. Afebrile. Otherwise there was no other major overnight events. Subjective not obtained due to clinical situations. Principal diagnosis: Rectal prolapse; hypoxemia; pulmonary congestion Constitutional Vitals: Vital Signs Temp Pulse Resp BP Pulse Ox 36.8 C 60 18 151/83 95 03/23/21 07:48 03/23/21 07:48 03/23/21 07:48 03/23/21 07:48 03/23/21 07:48 Period Temp Pulse Resp BP Sys/Kasper Pulse Ox Last 24 Hr 36.7 C-37.3 C 60-69 12-18 113-151/54-83 86-96 Intake and Output 03/22/21 03/23/21 03/23/21 21:59 05:59 13:59 Intake Total 0 360 240 Output Total 450 1575 Balance -450 -1215 240 Weight 55.593 kg Intake & Output: Intake & Output 03/22/21 03/23/21 03/23/21 21:59 05:59 13:59 Intake Total 0 360 240 Output Total 450 1575 Balance -450 -1215 240 Weight 55.593 kg Intake: Oral 0 360 240 Output: Urine Catheter Amount 450 1575 Uretheral (Goldstein) 450 Other: Meal Breakfast Percent of Meal Consumed 50% Feeding Ability Independent Urine Appearance Clear Uretheral (Goldstein) Clear Urine Color Bright Yellow Uretheral (Goldstein) Bright Yellow Urine Odor Normal Uretheral (Goldstein) Normal Stool Size Smear Stool Color Brown General appearance: cooperative and no acute distress Head Head exam: Present atraumatic and normocephalic Eye Eye exam: Present EOMI and PERRL ENT ENT exam: Present mucous membranes moist, normal exam and normal external ear exam Additional comments: Nasal cannula in place Neck Neck exam: Present normal inspection; Absent lymphadenopathy, tenderness and thyromegaly Respiratory Respiratory exam: Present wheezes; Absent accessory muscle use and respiratory distress Additional comments: Decreased breath sound in bilateral lung bases Cardiovascular Cardiovascular exam: Present normal rate and rhythm; Absent JVD GI/Abdominal GI/Abdominal exam: Present normal bowel sounds and soft; Absent organomegaly and tenderness Extremities Exam Extremities exam: Present full ROM, normal capillary refill and normal inspection; Absent tenderness Neurological Exam Neurological exam: Present alert, CN II-XII intact and oriented X3; Absent motor sensory deficit Psychiatric Psychiatric exam: Present normal affect and normal mood; Absent anxious and dep ressed Skin Skin exam: Present dry and intact OBJ DATA Labs CBC & Chem 7: 03/22/21 05:30 03/23/21 05:24 Labs: Abnormal Lab Results 03/23/21 03/22/21 03/22/21 05:24 11:42 05:30 RBC Hgb Hct MCV RDW Neut % (Auto) Lymph % (Auto) [place] % (Auto) Lymph # (Auto) [place] # (Auto) VBG Lactic Acid Sodium Potassium 2.9 L* Chloride 90 L 92 L Carbon Dioxide 39 H 33 H Anion Gap 6.0 L Creatinine 1.2 H 1.4 H Glucose Uric Acid 8.5 H 8.3 H Calcium 8.5 L Phosphorus Magnesium GGT 38 H 45 H Alkaline Phosphatase 122 H NT-Pro-B Natriuret Pep 9882.0 H Albumin 2.6 L Globulin 3.8 H Albumin/Globulin Ratio 0.7 L 0.8 L Prealbumin Urine Appearance 03/22/21 03/21/21 03/21/21 05:30 15:42 15:41 RBC 2.69 L Hgb 8.8 L Hct 26.5 L MCV RDW 14.6 H Neut % (Auto) Lymph % (Auto) 8.1 L [place] % (Auto) 12.4 H Lymph # (Auto) 0.63 L [place] # (Auto) 0.96 H VBG Lactic Acid < 0.2 L Sodium Potassium Chloride Carbon Dioxide Anion Gap Creatinine 1.5 H Glucose 146 H Uric Acid Calcium Phosphorus Magnesium GGT Alkaline Phosphatase NT-Pro-B Natriuret Pep Albumin Globulin Albumin/Globulin Ratio Prealbumin Urine Appearance 03/21/21 03/21/21 03/21/21 08:47 07:50 05:22 RBC Hgb Hct MCV RDW Neut % (Auto) Lymph % (Auto) [place] % (Auto) Lymph # (Auto) [place] # (Auto) VBG Lactic Acid Sodium Potassium 5.9 H* 5.7 H Chloride Carbon Dioxide Anion Gap Creatinine 1.3 H 1.3 H Glucose Uric Acid Calcium Phosphorus Magnesium 3.1 H GGT 54 H Alkaline Phosphatase 141 H NT-Pro-B Natriuret Pep 6515.0 H Albumin 3.0 L Globulin 4.4 H Albumin/Globulin Ratio 0.7 L Prealbumin Urine Appearance 03/21/21 03/21/21 03/20/21 05:22 03:50 12:34 RBC 2.88 L Hgb 9.5 L Hct 29.8 L MCV 103.5 H RDW 15.1 H Neut % (Auto) 78.1 H Lymph % (Auto) 9.0 L [place] % (Auto) Lymph # (Auto) 0.84 L [place] # (Auto) 1.04 H VBG Lactic Acid Sodium Potassium Chloride Carbon Dioxide 21 L Anion Gap Creatinine 1.3 H Glucose Uric Acid Calcium Phosphorus 4.9 H Magnesium GGT Alkaline Phosphatase NT-Pro-B Natriuret Pep Albumin Globulin Albumin/Globulin Ratio 0.9 L Prealbumin 9.9 L Urine Appearance Hazy A 03/20/21 05:00 RBC Hgb Hct MCV RDW Neut % (Auto) Lymph % (Auto) [place] % (Auto) Lymph # (Auto) [place] # (Auto) VBG Lactic Acid Sodium 132 L Potassium Chloride Carbon Dioxide Anion Gap Creatinine 1.3 H Glucose 145 H Uric Acid Calcium Phosphorus Magnesium GGT Alkaline Phosphatase NT-Pro-B Natriuret Pep Albumin Globulin 4.2 H Albumin/Globulin Ratio 0.8 L Prealbumin Urine Appearance Meds: Medications Amlodipine Besylate (Amlodipine 10 Mg Tablet) 10 mg PO QDAY [facility] Last Admin: 03/23/21 07:43 Dose: 10 mg Documented by: Clonidine HCl (Clonidine Hcl 0.1 Mg Tablet) 0.1 mg PO QDAY [facility] Last Admin: 03/23/21 07:44 Dose: 0.1 mg Documented by: Furosemide (Furosemide 40 Mg Tablet) 40 mg PO BIDD [facility] Last Admin: 03/23/21 07:43 Dose: 40 mg Documented by: Hydralazine HCl (Hydralazine 20 Mg/Ml Vial) 10 mg IV Q4-6HP PRN PRN Reason: Hypertension Hydromorphone HCl (Hydromorphone 0.5 Mg/0.5 Ml Syringe) 0.5 mg IV Q2HP PRN; Protocol PRN Reason: Per Pain Protocol Lisinopril (Lisinopril 5 Mg Tablet) 5 mg PO DAILY [facility] Methadone HCl (Methadone 5 Mg Tablet) 10 mg PO Q6HP PRN PRN Reason: Per Pain Protocol Last Admin: 03/23/21 07:43 Dose: 10 mg Documented by: Metoclopramide HCl (Metoclopramide 10 Mg Tablet) 10 mg PO Q6 [facility] Ondansetron HCl (Ondansetron 4 Mg/2 Ml Vial) 4 mg IV Q4HP PRN PRN Reason: Nausea And Vomiting Pantoprazole Sodium (Pantoprazole 40 Mg Tablet) 40 mg PO BIDAC [facility] Potassium Chloride (Potassium Chloride 20 Meq Tablet) 40 meq PO BIDCC [facility] Rivaroxaban (Rivaroxaban 20 Mg Tablet) 20 mg PO QPMCC [facility] Last Admin: 03/22/21 17:28 Dose: 20 mg Documented by: Sertraline HCl (Sertraline 100 Mg Tablet) 100 mg PO QDAY [facility] Last Admin: 03/23/21 07:43 Dose: 100 mg Documented by: A/P Assessment and plan (1) Hypokalemia: Status: Acute (2) CHF (congestive heart failure), NYHA class II: Status: Acute (3) Atrial fibrillation: Status: Acute (4) Rectal prolapse: Status: Acute (5) Benign hypertension with CKD (chronic kidney disease) stage III: Status: Chronic (6) Sleep apnea: Status: Chronic Comment: Sep [address] Escamilla sleep study; CPAP machine Qualifiers: Sleep apnea type: obstructive Qualified Code(s): G47.33 - Obstructive sleep apnea (adult) (pediatric) (7) Anemia: Status: Chronic Comment: (09/03/2014) Dr. Mendez; Anemia, symptomatic with associated abdominal pain Narrative A/P Narrative: Assessment and Plans: 1. Asymptomatic hypoxia, presumed to be secondary to CHF: Inpatient med surg 2D echocardiogram Daily weigh Strict intake and output 2L/day fluid restriction Lasix 40mg PO BID Lisinopril 5mg PO daily Oxygen therapy titrate to achieve oxygen saturation >=92% 2. Atrial fibrillation: [id number] score of 4 (if CHF confirmed by echocardiogram) or 3 Xarelto Currently rate-controlled, add beta nelson at time of discharge 3. Rectal prolapse: Dr. Austin does not plan to do any surgery at this point. Continue medical management 4. CKD stage 3: CMP daily to trend kidney functions Saline lock with Lasix Avoid nephrotoxic agents 5. Macrocytic anemia: cbc to trend H/H; transfuse pRBC if hemoglobin <7.0, active bleeding, or symptomatic 6. Essential HTN: Currently hypertensive Lisinopril 5mg PO daily Lasix 40mg PO BID Amlodipine Hydralazine 10mg IV q4-6hr PRN SBP>=180 and/or DBP>=110mmHg Add beta nelson at time of discharge 7. Depressive disorder: Sertraline 8. KIERRA on CPAP: Continue CPAP at night or while sleeping 9. Hypokalemia: K-Dur 40mEq PO BID Daily CMP to trend serum potassium level Also check serum Mg level and replace if needed Thank you for the consultation, I will continue to see patient on a daily basis Time Spent With Patient Time: Total time spent is greater than 50% in coordination of care (as documented) at patient's floor/unit and/or counseling patient: Total time spent with greater than 50% in coordination of care (as documented) at patient's floor/unit and/or counseling patient:: 15 - 24 minutes QUALITY VTE Deep Vein Thrombosis/Pulmonary Embolism Present on Admission: No
[2021-03-23] MEDS: METOCLOPRAMIDE 10 MG TABLET PO SCH ×2 (11:45→16:36)
[2021-03-23] MEDS: RIVAROXABAN 20 MG TABLET PO SCH (16:36)
[2021-03-23] MEDS: POTASSIUM CHLORIDE 20 MEQ TABLET PO SCH (16:37)
[2021-03-23] MEDS: PANTOPRAZOLE 40 MG TABLET PO SCH (16:37)
--- NOTE | 2021-03-23 16:44 | General Surgery Progress Note ---
SUBJECTIVE Subjective Patient information: Note initiated : 03/23/21 at 4:40 pm Service Date, if different from initiated Date: [] Patient: Angely Painter 70 y/o F admitted on 03/20/21 for Posterior Proctopexy and End Colostomy. Chief Complaint: [] Principal diagnosis: Rectal prolapse; hypoxemia; pulmonary congestion Interval history: Patient states that she feels better. Clinically she appears to have improved. She denies shortness of breath at rest and is lying flat. There is no labored respirations or accessory muscle use. Results of the echocardiogram is still not available. Constitutional Vitals: Vital Signs Temp Pulse Resp BP Pulse Ox 97.8 F 63 18 114/55 91 03/23/21 11:59 03/23/21 11:59 03/23/21 11:59 03/23/21 11:59 03/23/21 11:59 Period Temp Pulse Resp BP Sys/Kasper Pulse Ox Last 24 Hr 97.8 F-99.1 F 60-69 16-18 114-151/54-83 91-96 Intake and Output 03/23/21 03/23/21 03/23/21 05:59 13:59 21:59 Intake Total 360 240 840 Output Total 1575 Balance -1215 240 840 Intake & Output: Intake & Output 03/23/21 03/23/21 03/23/21 05:59 13:59 21:59 Intake Total 360 240 840 Output Total 1575 Balance -1215 240 840 Intake: Oral 360 240 840 Output: Urine Catheter Amount 1575 Other: Meal Breakfast Percent of Meal Consumed 50% Feeding Ability Independent Urine Appearance Clear Urine Color Bright Yellow Urine Odor Normal Stool Size Smear Stool Color Brown ENT ENT exam: Present mucous membranes moist, normal exam and normal external ear exam Additional comments: Nasal cannula in place Neck Neck exam: Present normal inspection; Absent lymphadenopathy, tenderness and thyromegaly Respiratory Respiratory exam: Present normal respiratory exam and CTAB; Absent rales, respiratory distress, rhonchi, stridor and wheezes Cardiovascular Cardiovascular exam: Present bradycardia, irregular rhythm, +S1 and +S2; Absent JVD Additional comments: Heart rate is irregularly irregular with base rate of 60. GI/Abdominal GI/Abdominal exam: Present normal bowel sounds and soft; Absent organomegaly and tenderness Rectal Rectal exam: Present decreased rectal tone Additional comments: Major rectal prolapse which is easily reducible Extremities Exam Extremities exam: Present full ROM, normal capillary refill, normal inspection and neurovascular intact; Absent pedal edema and tenderness Neurological Exam Neurological exam: Present alert, oriented X3 and reflexes normal Psychiatric Psychiatric exam: Present normal affect and normal mood; Absent anxious and depressed A/P Assessment and plan (1) CHF (congestive heart failure), NYHA class II: Status: Acute (2) Atrial fibrillation: Status: Acute (3) Rectal prolapse: Status: Acute (4) Hypertension: Status: Chronic Qualifiers: Hypertension type: essential hypertension Qualified Code(s): I10 - Essential (primary) hypertension (5) Sleep apnea: Status: Chronic Comment: Sep [address] Escamilla sleep study; CPAP machine Qualifiers: Sleep apnea type: obstructive Qualified Code(s): G47.33 - Obstructive sleep apnea (adult) (pediatric) Narrative A/P Narrative: Recheck proBNP Follow-up chest x-ray in the morning Follow-up results of echocardiogram in the morning Probable discharge on home O2 once it is available Patient needs follow-up with cardiology as an outpatient Time Spent With Patient Time: Total time spent is greater than 50% in coordination of care (as documented) at patient's floor/unit and/or counseling patient:
[2021-03-23] MEDS ORDERED: POTASSIUM CHLORIDE 20 MEQ TABLET PO SCH (17:30)
[2021-03-24] MEDS: METHADONE 5 MG TABLET PO PRN ×3 (00:12→14:23)
[2021-03-24] MEDS: METOCLOPRAMIDE 10 MG TABLET PO SCH ×3 (00:12→12:41)
[2021-03-24 04:04] LABS: ALT/SGPT 8 U/L (<40); AST/SGOT 13 U/L (<32); Albumin 2.7 gm/dL (3.2-5.2); Albumin/Globulin Ratio 0.7 (1.0-2.3); Alkaline Phosphatase 80 U/L (39-117); Bilirubin,Direct < 0.2 mg/dL (0-0.3); Bilirubin,Total 0.2 mg/dL (0.1-1.0); Blood Urea Nitrogen 26 mg/dL (8-23); Calcium 8.7 mg/dL (8.6-10.4); Carbon Dioxide 39 mmol/L (22-30); Chloride 89 mmol/L (96-108); Globulin 3.7 gm/dL (2.2-3.7); Glomerular Filtration Rate 37; Glucose 94 mg/dL (70-105); Lactate Dehydrogenase 114 U/L (135-225); Phosphorous 2.8 mg/dL (2.5-4.5); Triglycerides 62 mg/dL (<150); Uric Acid 8.8 mg/dL (2.5-8.0)
--- NOTE | 2021-03-24 08:38 | XRay Report ---
CLINICAL INFORMATION: Congestive heart failure and infiltrate COMPARISON: 03/22/2021 FINDINGS: Moderate cardiomegaly show slight decrease. Mediastinum is unremarkable. Pulmonary vessels are returned to normal in caliber. Bilateral infiltrates and/or edema have improved dramatically with moderate residual in the right mid and lower lung. Small right pleural effusion noted IMPRESSION: Marked improvement in bilateral edema and/or infiltrates with modest residual in the right mid and lower lung. Findings are most compatible with resolving CHF Interpreted and Authenticated by: Juvenal Edge 03/24/21
[2021-03-24] MEDS ORDERED: MAGNESIUM SULFATE 4 GM/100 ML BAG IV ONE (08:51)
[2021-03-24] MEDS ORDERED: LISINOPRIL 5 MG TABLET PO SCH (09:00)
[2021-03-24] MEDS: POTASSIUM CHLORIDE 20 MEQ TABLET PO SCH (09:15)
[2021-03-24] MEDS: amLODIPine 10 MG TABLET PO SCH (09:15)
[2021-03-24] MEDS: SERTRALINE 100 MG TABLET PO SCH (09:16)
[2021-03-24] MEDS: PANTOPRAZOLE 40 MG TABLET PO SCH (09:16)
[2021-03-24] MEDS: FUROSEMIDE 40 MG TABLET PO SCH (09:16)
[2021-03-24] MEDS: cloNIDine HCL 0.1 MG TABLET PO SCH (09:17)
--- NOTE | 2021-03-24 11:31 | Discharge Summary ---
Discharge Provider Provider Patient information: Note initiated : 03/24/21 at 11:27 am Service Date, if different from initiated Date: [] Patient: Angely Painter 70 y/o F admitted on 03/20/21 for Posterior Proctopexy and End Colostomy. Chief Complaint: [] Date of admission: 03/20/21 09:59 Discharge date: 03/24/21 Primary care physician: Valerie Milton Admitting clinician: Richy Austin Attending physician on admission: Richy Austin Consults: 03/21/21 07:59 Consult to Physician [CONS] Routine Comment: Consulting Provider: Zeb Wakefield Reason For Exam: Physician to Consult Attending physician on discharge: Richy Austin Discharging clinician: Richy Austin COURSE Hospital Course Hospital course: 70-year-old female admitted for repair of rectal prolapse on 20 March 2021. She was admitted preprocedure for bowel prep. During the night her oxygen saturations dropped to 70% and she was started on supplemental oxygen. When seen in holding area prior to surgery it was noted that her oxygen saturation was down to 50%. Blood gas suggested that her PaO2 was 30% however this was probably a venous sampling. Her surgery was canceled and she was admitted. Chest x-ray showed pulmonary venous congestion compatible with right heart failure. Her initial proBNP was greater than 6600. Patient was treated with Lasix IV and given oxygen to maintain her saturation above 90%. She has been on Lasix since that time. Her saturation is 90% on 2 L of oxygen however off oxygen her oxygen saturation is 80% with an FiO2 40. Patient is totally asymptomatic except for some moments. She has no labored respirations and no accessory muscle use. She does have minimal rales at the bases on exam however she is able to lie flat without difficulty. She does not have significant peripheral edema. She is discharged home to have work-up as an outpatient. She needs to have cardiology and pulmonology evaluation and treatment prior to being considered for elective surgery. She is advised as to how to keep her rectal prolapse reduced in the meantime. Discharge diagnosis: Rectal prolapse, severe Secondary discharge diagnosis: Right heart failure Pulmonary hypertension moderate Respiratory failure with hypoxemia chronic Chronic obstructive sleep apnea, severe Hypertension Chronic kidney disease 3 History of breast cancer with metastasis, on therapy Reason for admission: Rectal prolapse Procedures: None none Complications: None Time Spent with Patient Time attestation: Total time spent providing and/or coordinating discharge services: Physical Examination Vital Signs Vital signs: Temp Pulse Resp BP Pulse Ox 98.3 F 55 L 18 120/69 95 03/24/21 08:00 03/24/21 08:00 03/24/21 08:00 03/24/21 08:00 03/24/21 08:00 General physical appearance General physical exam: no distress, no pain, cachectic and chronically ill Eyes Eye exam: PERRL and normal ocular movement ENT ENT exam: decreased hearing and dentures Head Head exam IM: Present atraumatic, normal inspection and normocephalic Neck Neck exam: no masses, no bruits, trachea midline, no lymphadenopathy and no venous distension Cardiovascular Cardiovascular exam IM: Present +S1, +S2, systolic murmur (Grade 2) and tachycardia Respiratory Respiratory exam: normal expansion, normal respiratory effort and other (She also has fine basilar rales) Abdomen Abdomen: Present soft, bowel sounds (Active bowel sounds) and distended (Mild distention) Rectum Rectum: Absent normal sphincter tone (No sphincter tone with full rectal prolapse) Hemorrhoids: Present large Integumentary Integumentary: Present no rash, no growths and other (Chronic superficial ulcer right heel) Neurologic Neurologic: Present normal coordination and normal sensation Musculoskeletal Musculoskeletal: Present normal gait and normal posture Psychiatric Psychiatric: Present oriented to time, oriented to person, oriented to place, speech is normal and memory intact Discharge Plan Patient/Caregiver Discharge Instructions Activity: increase activity as tolerated, resume usual activities as tolerated and wear oxygen at all times Diet: Regular Diet Prescriptions: New furosemide 40 mg tablet 40 mg PO QAM Qty: 30 RF: 0 Continued (DME) compression socks, medium misc See Dose Instructions .ROUTE .MEDSUPPLY Qty: 2 RF: 0 amlodipine 10 mg tablet 10 mg PO QDAY Qty: 90 RF: 4 promethazine 25 mg tablet 12.5 mg PO Q6H PRN (Reason: nausea and vomiting) Qty: 120 RF: 2 methadone 10 mg tablet 10 mg PO Q6H PRN (Reason: pain) Qty: 120 RF: 0 sertraline 100 mg tablet 100 mg PO QDAY Qty: 30 RF: 0 letrozole 2.5 mg tablet 2.5 mg PO QDAY RF: 0 fenofibrate 160 mg tablet 160 mg PO QDAY RF: 0 clonidine HCl 0.1 mg tablet 0.1 mg PO QDAY RF: 0 Follow Up Plan Follow up with: Joel Wallis [Physician] - Oliver Prince MD [Physician] - Richy Austin MD [Physician] - 04/07/21 10:30 am Valerie Milton ARNP [Primary Care Provider] - 03/26/21 9:45 am (Check-in at 9:30 am) Patient Disposition: Home, Self-Care Plan of Treatment: Patient will have evaluation by cardiology and pulmonology prior to reconsideration for her surgery. With her severe cardiopulmonary disease she may not be a candidate for the operative procedure Prognosis: Fair Rehab Potential: Fair I certify that the patient requires SNF services: No Overall status at discharge: patient is not back to baseline Discharge Orders: Discharge Order (Routine); Ordered 03/24/21 Ordered By: Richy Austin Pending Pending Pending: Resuscitation Status Full Code Diet Regular Diet Start WedMar 216 Amlodipine Besylate (Amlodipine 10 Mg Tablet) 10 mg PO QDAY [facility] Last Admin: 03/24/21 09:15 Dose: 10 mg Documented by: Admin: 03/23/21 07:43 Dose: 10 mg Documented by: Admin: 03/22/21 08:50 Dose: 10 mg Documented by: [email or web address] Clonidine HCl (Clonidine Hcl 0.1 Mg Tablet) 0.1 mg PO QDAY [facility] Last Admin: 03/24/21 09:17 Dose: 0.1 mg Documented by: Admin: 03/23/21 07:44 Dose: 0.1 mg Documented by: Admin: 03/22/21 08:49 Dose: 0.1 mg Documented by: [id number] Furosemide (Furosemide 40 Mg Tablet) 40 mg PO BIDD [facility] Last Admin: 03/24/21 09:16 Dose: 40 mg Documented by: Admin: 03/23/21 14:57 Dose: 40 mg Documented by: Admin: 03/23/21 07:43 Dose: 40 mg Documented by: Admin: 03/22/21 16:05 Dose: 40 mg Documented by: [id number] Magnesium Sulfate (Magnesium Sulfate) 4 gm in 100 mls @ 25 mls/hr IV ONCE ONE Stop: 03/24/21 12:50 Last Admin: 03/24/21 09:18 Dose: 25 mls/hr Documented by: JIM Lisinopril (Lisinopril 5 Mg Tablet) 5 mg PO DAILY [facility] Last Admin: 03/24/21 09:16 Dose: 5 mg Documented by: JIM Methadone HCl (Methadone 5 Mg Tablet) 10 mg PO Q6HP PRN PRN Reason: Per Pain Protocol Last Admin: 03/24/21 06:06 Dose: 10 mg Documented by: Admin: 03/24/21 00:12 Dose: 10 mg Documented by: Admin: 03/23/21 14:57 Dose: 10 mg Documented by: Admin: 03/23/21 07:43 Dose: 10 mg Documented by: Admin: 03/22/21 23:43 Dose: 10 mg Documented by: Admin: 03/22/21 16:13 Dose: 10 mg Documented by: [id number] Admin: 03/21/21 19:46 Dose: 10 mg Documented by: Admin: 03/21/21 13:42 Dose: 10 mg Documented by: JORGE A Metoclopramide HCl (Metoclopramide 10 Mg Tablet) 10 mg PO Q6 [facility] Last Admin: 03/24/21 06:03 Dose: 10 mg Documented by: Admin: 03/24/21 00:12 Dose: 10 mg Documented by: Admin: 03/23/21 16:36 Dose: 10 mg Documented by: Admin: 03/23/21 11:45 Dose: 10 mg Documented by: LYNETTE Pantoprazole Sodium (Pantoprazole 40 Mg Tablet) 40 mg PO BIDAC [facility] Last Admin: 03/24/21 09:16 Dose: 40 mg Documented by: Admin: 03/23/21 16:37 Dose: 40 mg Documented by: LYNETTE Potassium Chloride (Potassium Chloride 20 Meq Tablet) 40 meq PO BIDCC [facility] Last Admin: 03/24/21 09:15 Dose: 40 meq Documented by: Admin: 03/23/21 16:37 Dose: 40 meq Documented by: LYNETTE Rivaroxaban (Rivaroxaban 20 Mg Tablet) 20 mg PO QPMCC [facility] Last Admin: 03/23/21 16:36 Dose: 20 mg Documented by: Admin: 03/22/21 17:28 Dose: 20 mg Documented by: [email or web address] Admin: 03/21/21 17:27 Dose: 20 mg Documented by: JORGE A Sertraline HCl (Sertraline 100 Mg Tablet) 100 mg PO QDAY [facility] Last Admin: 03/24/21 09:16 Dose: 100 mg Documented by: Admin: 03/23/21 07:43 Dose: 100 mg Documented by: Admin: 03/22/21 08:50 Dose: 100 mg Documented by: [email or web address] Shift Summary 03/24/21 03:05 Shift Summary by Jamir Mejia pt is A&Ox4 and able to make needs known. pt had a posterior proctopexy scheduled for 03/21 however it was cancelled due to very low sats. 03/22 chest xray showing worsening infiltrates, crackles auscultated in mid and lower lobes, IS encouraged. repositions self with reminders. saeed in place, draining adequately. CPAP at HS. O2 is currently at 2.5L via NC, orders specify to keep sats =/> 92%. patient with antiembolism stockings in place. ulcers to the right calf and heel with mepilex in place. wound care referral placed. patient is on a 2L fluid restriction, 440ml thus far this shift. K+ 2.9 and Mg 1.6 from 03/23, 40Meq PO K+ scheduled. Initialized on 03/24/21 03:05 - END OF NOTE
== END 2021-03-24 14:40 | disposition home or self-care (01) | DRG 394 ==
LOC: MEDSUR 09:59
PROVIDERS: ADMIT Family Medicine Adult Medicine; ATTEND Family Medicine Adult Medicine